=== PATIENT | male | born 1980 | race American Indian/Alaskan Native ===

== ENCOUNTER 2019-03-10 21:32 | Emergency (ER) | payer SELFPAY ==
--- NOTE | 2019-03-10 22:29 | Event Note ---
ED Screening Note Date of service: 03/10/19 Time: 22:26 ED Screening Note: 38 y o male presents with left abd pain and lump x 3 days also cc of blood in stool 2 days, 2 episodes This initial assessment/diagnostic orders/clinical plan/treatment(s) is/are subject to change based on patients health status, clinical progression and re- assessment by fellow clinical providers in the ED. Further treatment and workup at subsequent clinical providers discretion. Patient/guardian urged not to elope from the ED as their condition may be serious if not clinically assessed and managed. Initial orders include: ua,cbc,cmp CT scan
[2019-03-10 22:57] LABS: Bilirubin,Urine NEG (Negative); Blood,Urine NEG (Negative); Color,Urine Yellow (Yellow); Mucus,Urine FEW /HPF; Protein,Urine <15 mg/dL mg/dL (Negative); Urobilinogen,Urine < 2.0 mg/dL (<2.0); WBC,Urine < 1.0 /HPF (0.0-6.0)
--- NOTE | 2019-03-10 23:33 | Cat Scan Report ---
CT abdomen pelvis wo con INDICATION: Abdominal Pain. TECHNIQUE: All CT scans at this location are performed using the following dose modulation technique: Automated exposure control. CONTRAST: None. COMPARISON: None available. The parenchymal organs are unremarkable in appearance. Negative for abdominal mass, adenopathy or flu id collection. A fat-containing umbilical hernia is small. Evaluation the bowel demonstrates diverticulosis without localized thickening and adjacent inflammati on at the junction of the descending and sigmoid colon's. Negative for free perforation or abscess. IMPRESSION: 1. Moderate acute diverticulitis at junction of descending and sigmoid colon's. 2. Small fat-containing umbilical hernia. Signer Name: Brandon Mims MD Signed: 03/10/2019 11:29 PM Workstation Name: [id number]
[2019-03-10 23:48] LABS: Basophils # (Auto) 0.2 K/mm3 (0.0-0.1); Basophils % (Auto) 1.8 % (0.0-1.8); Eosinophils # (Auto) 0.1 K/mm3 (0.0-0.4); Eosinophils % (Auto) 1.1 % (0.0-4.3); Lymphocytes # (Auto) 1.9 K/mm3 (1.2-5.4); Lymphocytes % (Auto) 14.4 % (13.4-35.0); Mean Corpuscular HGB Conc 36 % (32-34); Mean Corpuscular Volume 100 fl (84-94); Monocytes % (Auto) 7.2 % (0.0-7.3); Platelet Count 201 K/mm3 (140-440); Red Blood Count 4.73 M/mm3 (3.65-5.03)
[2019-03-11 00:01] LABS: INR 1.02 (0.87-1.13)
[2019-03-11 00:07] LABS: Hematocrit 47.4 % (35.5-45.6); Hemoglobin 17.1 gm/dl (11.8-15.2)
[2019-03-11 00:13] LABS: Alanine Aminotransferase 16 units/L (7-56); Albumin 4.2 g/dL (3.9-5); BUN/Creatinine Ratio 5; Blood Urea Nitrogen 6 mg/dL (9-20); Hemolysis Index 18
[2019-03-11] MEDS ORDERED: fentaNYL 100 MCG/2 ML INJ IV ONE (00:29)
[2019-03-11] MEDS ORDERED: ONDANSETRON 4 MG/2 ML INJ IV ONE (00:29)
[2019-03-11] MEDS ORDERED: levoFLOXacin 750 MG TAB PO ONE (00:31)
[2019-03-11] MEDS ORDERED: metroNIDAZOLE 500 MG TAB PO ONE (00:31)
--- NOTE | 2019-03-11 00:37 | Emergency Department Report ---
HPI - General Chief Complaint: Abdominal Pain Time Seen by Provider: 03/10/19 23:54 - HPI HPI: Room 19 The patient is a 38-year-old male presenting with chief complaint of headache and abdominal pain. The patient states for the past 4 days he's had a constant frontal headache and left sided abdominal pain. Patient describes abdominal pain as sharp and cramping which has been constant and waxing and waning. The patient states yesterday he noticed some blood in the bowl when he had a bowel movement. Patient missed her medical pain at that time but none currently. Patient denies dysuria or hematuria. Patient denies history of fever. Patient gets his pain score 10/10 Location: [See above] Duration: [See above] Quality: [See above] Severity: [See above] Timing: [See above] Context: [See above] Modifying factors: [See above] Associated signs and symptoms: [see above] ED Past Medical Hx - Past Medical History Previous Medical History?: No - Surgical History Past Surgical History?: No - Family History Family history: no significant - Social History Smoking Status: Never Smoker Substance Use Type: None (denies illicit drug use), Alcohol (occasional) - Medications Home Medications: Home Medications Medication Instructions Recorded Confirmed Last Taken Type HYDROcodone/APAP 5-325 [[place] 1 - 2 each PO Q6HR PRN #20 tablet 03/11/19 Unknown Rx 5/325] levoFLOXacin [Levaquin] 750 mg PO QDAY #10 tablet 03/11/19 Unknown Rx metroNIDAZOLE [Flagyl] 500 mg PO Q6H #40 tablet 03/11/19 Unknown Rx ED Review of Systems ROS: Stated complaint: LEFT SIDE LUMP ON STOMACH Other details as noted in HPI Constitutional: denies: fever Eyes: denies: eye pain ENT: denies: throat pain Respiratory: no symptoms reported Cardiovascular: denies: chest pain Endocrine: no symptoms reported Gastrointestinal: abdominal pain, nausea, vomiting, hematochezia Genitourinary: denies: dysuria Musculoskeletal: denies: back pain Neurological: headache Physical Exam - Physical Exam Vital Signs: Vital Signs 03/10/19 03/10/19 03/11/19 21:51 22:25 00:00 Temperature 98.6 F 98.6 F 98.4 F Pulse Rate 72 72 61 Respiratory 18 18 21 Rate Blood Pressure 135/84 135/84 Blood Pressure 135/85 [Left] O2 Sat by Pulse 97 98 97 Oximetry Physical Exam: GENERAL: The patient is well-developed well-nourished male lying on stretcher not appearing to be in acute distress. [] HEENT: Normocephalic. Atraumatic. Extraocular motions are intact. Patient has moist mucous membranes. NECK: Supple. Trachea midline CHEST/LUNGS: Clear to auscultation. There is no respiratory distress noted. HEART/CARDIOVASCULAR: Regular. There is no tachycardia. There is no gallop rub or murmur. ABDOMEN: Abdomen is soft, with tenderness to palpation in the left lower quadrant. Patient has normal bowel sounds. There is no abdominal distention. SKIN: There is no rash. There is no edema. There is no diaphoresis. NEURO: The patient is awake, alert, and oriented. The patient is cooperative. The patient has normal speech MUSCULOSKELETAL: There is left CVA tenderness. There is no evidence of acute injury. ED Course Vital Signs 03/10/19 03/10/19 03/11/19 21:51 22:25 00:00 Temperature 98.6 F 98.6 F 98.4 F Pulse Rate 72 72 61 Respiratory 18 18 21 Rate Blood Pressure 135/84 135/84 Blood Pressure 135/85 [Left] O2 Sat by Pulse 97 98 97 Oximetry ED Medical Decision Making - Lab Data Result diagrams: 03/10/19 23:30 03/10/19 23:30 Laboratory Tests 03/10/19 03/10/19 03/10/19 23:30 23:30 23:30 WBC 13.2 H RBC 4.73 Hgb 17.1 H Hct 47.4 H MCV 100 H MCH 36 H MCHC 36 H RDW 12.0 L Plt Count 201 Lymph % (Auto) 14.4 [place] % (Auto) 7.2 Eos % (Auto) 1.1 Baso % (Auto) 1.8 Lymph # 1.9 [place] # 1.0 H Eos # 0.1 Baso # 0.2 H Seg Neutrophils % 75.5 H Seg Neutrophils # 10.0 H PT 13.3 INR 1.02 Sodium 137 Potassium 3.8 Chloride 103.4 Carbon Dioxide 22 Anion Gap 15 BUN 6 L Creatinine 1.3 Estimated GFR > 60 BUN/Creatinine Ratio 5 Glucose 97 Calcium 9.0 Total Bilirubin 0.80 AST 19 ALT 16 Alkaline Phosphatase 80 Total Protein 7.8 Albumin 4.2 Albumin/Globulin Ratio 1.2 Lipase Urine Color Urine Turbidity Urine pH Ur Specific [place] Urine Protein Urine Glucose (UA) Urine Ketones Urine Blood Urine Nitrite Urine Bilirubin Urine Urobilinogen Ur Leukocyte Esterase Urine WBC (Auto) Urine RBC (Auto) U Epithel Cells (Auto) Urine Mucus 03/10/19 03/10/19 23:30 Unknown WBC RBC Hgb Hct MCV MCH MCHC RDW Plt Count Lymph % (Auto) [place] % (Auto) Eos % (Auto) Baso % (Auto) Lymph # [place] # Eos # Baso # Seg Neutrophils % Seg Neutrophils # PT INR Sodium Potassium Chloride Carbon Dioxide Anion Gap BUN Creatinine Estimated GFR BUN/Creatinine Ratio Glucose Calcium Total Bilirubin AST ALT Alkaline Phosphatase Total Protein Albumin Albumin/Globulin Ratio Lipase 18 Urine Color Yellow Urine Turbidity Clear Urine pH 6.0 Ur Specific [place] 1.013 Urine Protein <15 mg/dl Urine Glucose (UA) Neg Urine Ketones Neg Urine Blood Neg Urine Nitrite Neg Urine Bilirubin Neg Urine Urobilinogen < 2.0 Ur Leukocyte Esterase Neg Urine WBC (Auto) < 1.0 Urine RBC (Auto) 1.0 U Epithel Cells (Auto) < 1.0 Urine Mucus Few - Radiology Data Radiology results: report reviewed (ED abdomen the pelvis, CT head), image reviewed (CT abdomen and pelvis, CT head) [place] [address] Cat Scan Report Signed Patient: LANDON RIOS MR#: [id number] : 1980 Acct:[id number] Age/Sex: 38 / M ADM Date: 03/10/19 Loc: ED Atte cy Dr: Ordering Physician: JETHRO RENE Date of Service: 03/10/19 Procedure(s): CT abdomen pelvis wo con Accession Number(s): [id number] cc: JETHRO RENE CT abdomen pelvis wo con INDICATION: Abdominal Pain. TECHNIQUE: All CT scans at this location are performed using the following dose modulation technique: Automated exposure control. CONTRAST: None. COMPARISON: None available. The parenchymal organs are unremarkable in appearance. Negative for abdominal mass, adenopathy or fluid collection. A fat-containing umbilical hernia is small. Evaluation the bowel demonstrates diverticulosis without localized thickening and adjacent inflammation at the junction of the descending and sigmoid colon's. Negative for free perforation or abscess. IMPRESSION: 1. Moderate acute diverticulitis at junction of descending and sigmoid colon's. 2. Small fat-containing umbilical hernia. Signer Name: Brandon Mims MD Signed: 03/10/2019 11:29 PM Workstation Name: [id number] Transcribed By: OTIS Dictated By: Brandon Mims MD Electronically Authenticated By: Brandon Mims MD Signed Date/Time: 03/10/192328 DD/ 24 TD/TT: [facility] [address] [place] [address] Cat Scan Report Signed Patient: LANDON RIOS MR#: [id number] : 1980 Acct:[id number] Age/Sex: 38 / M ADM Date: 03/10/19 Loc: ED Attending Dr: Ordering Physician: CAROLEE AGUILAR MD Date of Service: 03/11/19 Procedure(s): CT head/brain wo con Accession Number(s): [id number] cc: CAROLEE AGUILAR MD CT head/brain wo con INDICATION: headache. TECHNIQUE: All CT scans at this location are performed using the following dose modulation technique: Automated exposure control. CONTRAST: None. COMPARISON: None available. FINDINGS: The ventricular system is appropriate in size and configuration without midline shift. Negative for mass, stroke or hemorrhage. Imaged portions of the paranasal sinuses are clear. IMPRESSION: Negative CT brain without contrast. Signer Name: Brandon Mims MD Signed: 03/11/2019 1:36 AM Workstation Name: [id number] Transcribed By: OTIS Dictated By: Brandon Mims MD Electronically Authenticated By: Brandon Mims MD Signed Date/Time: 03/11/19135 DD/ 0 TD/TT: - Differential Diagnosis diverticulitis, renal colic, intracranial mass, ICH, hemorrhoids Critical care attestation.: If time is entered above; I have spent that time in minutes in the direct care of this critically ill patient, excluding procedure time. ED Disposition Clinical Impression: Acute diverticulitis, Headache Disposition: - TO HOME OR SELFCARE Is pt being admited?: No Does the pt Need Aspirin: No Condition: Stable Instructions: Diverticulitis (ED) Additional Instructions: Return to the emergency department should you develop worsening symptoms, inability to tolerate food or liquids, high fever or any other concerns Prescriptions: metroNIDAZOLE [Flagyl] 500 mg PO Q6H #40 tablet levoFLOXacin [Levaquin] 750 mg PO QDAY #10 tablet HYDROcodone/APAP 5-325 [[place] 5/325] 1 - 2 each PO Q6HR PRN #20 tablet PRN Reason: Pain Referrals: GRACE MEDLEY MD [Staff Physician] - 3-5 Days (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 Please follow up with him for further evaluation) Time of Disposition: 02:01
--- NOTE | 2019-03-11 01:41 | Cat Scan Report ---
CT head/brain wo con INDICATION: headache. TECHNIQUE: All CT scans at this location are performed using the following dose modulation technique: Automated exposure control. CONTRAST: None. COMPARISON: None available. FINDINGS: The ventricular system is appropriate in size and configuration without midline shift. Nega tive for mass, stroke or hemorrhage. Imaged portions of the paranasal sinuses are clear. IMPRESSION: Negative CT brain without contrast. Signer Name: Brandon Mims MD Signed: 03/11/2019 1:36 AM Workstation Name: [id number]
[2019-03-11 02:05] VITALS: BP 151/95
== END 2019-03-11 02:29 | disposition home or self-care (01) ==
LOC: ED 21:32
DX: K57.92 Diverticulitis of intestine, part unspecified, without perforation or abscess without bleeding (principal); R51 Headache; Z79.899 Other long term (current) drug therapy
CPT/HCPCS: 36415; 70450; 74176; 80053; 81001; 83690; 85025; 85610; 96374; 96375; 99284; J2405; J3010

== ENCOUNTER 2020-06-25 14:49 | Emergency (ER) | payer OTHER ==
--- NOTE | 2020-06-25 15:40 | Emergency Department Report ---
Blank Doc - Documentation Documentation: 39-year-old male that presents with generalized abdominal pain with nausea vom iting. Patient stated has bright red blood in stool as well. Patient has history of diverticulitis. 1- This initial assessment/diagnostic orders/clinical plan/ treatment(s) is/are subject to change based on pt's health status, clinical progression and re- assessment by fellow clinical providers in the ED. Further treatment and workup at subsequent clinical provers discretion. Patient/guardians urged not to elope from ED as their condition may be serious if not clinically assessed and managed. 2-labs 3-UA
[2020-06-25 16:28] LABS: Basophils # (Auto) 0.1 K/mm3 (0.0-0.1); Basophils % (Auto) 0.7 % (0.0-1.8); Eosinophils # (Auto) 0.2 K/mm3 (0.0-0.4); Eosinophils % (Auto) 1.8 % (0.0-4.3); Hematocrit 53.4 % (35.5-45.6); Hemoglobin 18.4 gm/dl (11.8-15.2); Lymphocytes % (Auto) 18.5 % (13.4-35.0); Mean Corpuscular HGB Conc 35 % (32-34); Mean Corpuscular Volume 105 fl (84-94); Monocytes # (Auto) 0.9 K/mm3 (0.0-0.8); Monocytes % (Auto) 8.3 % (0.0-7.3); Platelet Count 223 K/mm3 (140-440); Red Blood Count 5.07 M/mm3 (3.65-5.03); Red Cell Distribution Width 12.2 % (13.2-15.2)
[2020-06-25 16:44] LABS: Alanine Aminotransferase 35 units/L (7-56); Albumin 4.5 g/dL (3.9-5); BUN/Creatinine Ratio 3; Blood Urea Nitrogen 3 mg/dL (9-20); Calcium 9.5 mg/dL (8.4-10.2); Hemolysis Index 10
--- NOTE | 2020-06-26 02:08 | Emergency Department Report ---
ED Abdominal Pain HPI - General Chief Complaint: GI Bleed Stated Complaint: ABD PAIN/BLOODY STOOL PUI?: No Time Seen by Provider: 06/25/20 15:30 Source: patient Mode of arrival: Ambulatory Limitations: No Limitations - History of Present Illness Initial Comments: Chief complaint: Abdominal pain HPI: This is a 39-year-old male with history of diverticulitis presents with left lower quadrant abdominal pain for several days. Pain is crampy achy moderate 8 out of 10 in severity. No radiation. Pain is constant. Worse with palpation. Patient also has bloody stools. Also has rectal bleeding in addition to bloody stools. He denies fever. He denies vomiting. But he does have nausea. MD Complaint: abdominal pain -: Gradual, days(s) (2 days) Location: LLQ Radiation: none Migration to: no migration Severity: moderate Severity scale (0 -10): 8 Quality: cramping Consistency: constant Improves With: nothing Worsens With: movement Associated Symptoms: nausea, hematochezia, other (Rectal bleeding) - Related Data Previous Rx's Medication Instructions Recorded Last Taken Type HYDROcodone/APAP 5-325 [[place] 1 - 2 each PO Q6HR PRN #20 tablet 03/11/19 Unknown Rx 5/325] levoFLOXacin [Levaquin] 750 mg PO QDAY #10 tablet 03/11/19 Unknown Rx metroNIDAZOLE [Flagyl] 500 mg PO Q6H #40 tablet 03/11/19 Unknown Rx Ciprofloxacin HCl 500 mg PO BID 10 Days #20 tablet 06/26/20 Unknown Rx HYDROcodone/APAP 5-325 [[place] 1 each PO Q6HR PRN #15 tablet 06/26/20 Unknown Rx 5/325] Promethazine [Phenergan] 25 mg PO Q6HR PRN #10 tab 06/26/20 Unknown Rx metroNIDAZOLE [Flagyl TAB] 500 mg PO Q12HR 10 Days #20 tab 06/26/20 Unknown Rx Allergies Allergy/AdvReac Type Severity Reaction Status Date / Time No Known Allergies Allergy Unverified 03/10/19 22:02 ED Review of Systems ROS: Stated complaint: ABD PAIN/BLOODY STOOL Other details as noted in HPI Comment: All other systems reviewed and negative Constitutional: denies: fever, malaise Respiratory: denies: cough, shortness of breath Gastrointestinal: abdominal pain, nausea, hematochezia ED Past Medical Hx - Past Medical History Previous Medical History?: Yes Additional medical history: Diverticulitis - Surgical History Past Surgical History?: No - Social History Smoking Status: Never Smoker Substance Use Type: None - Medications Home Medications: Home Medications Medication Instructions Recorded Confirmed Last Taken Type HYDROcodone/APAP 5-325 [[place] 1 - 2 each PO Q6HR PRN #20 tablet 03/11/19 Unknown Rx 5/325] levoFLOXacin [Levaquin] 750 mg PO QDAY #10 tablet 03/11/19 Unknown Rx metroNIDAZOLE [Flagyl] 500 mg PO Q6H #40 tablet 03/11/19 Unknown Rx Ciprofloxacin HCl 500 mg PO BID 10 Days #20 tablet 06/26/20 Unknown Rx HYDROcodone/APAP 5-325 [[place] 1 each PO Q6HR PRN #15 tablet 06/26/20 Unknown Rx 5/325] Promethazine [Phenergan] 25 mg PO Q6HR PRN #10 tab 06/26/20 Unknown Rx metroNIDAZOLE [Flagyl TAB] 500 mg PO Q12HR 10 Days #20 tab 06/26/20 Unknown Rx ED Physical Exam - General Limitations: No Limitations General appearance: alert, in no apparent distress, other (Appears comfortable nontoxic-appearing) - Head Head exam: Present: atraumatic, normocephalic - Eye Eye exam: Present: normal appearance - ENT ENT exam: Present: mucous membranes moist - Neck Neck exam: Present: normal inspection - Respiratory Respiratory exam: Present: normal lung sounds bilaterally. Absent: respiratory distress, wheezes, rales, rhonchi - Cardiovascular Cardiovascular Exam: Present: regular rate, normal rhythm, normal heart sounds. Absent: systolic murmur, diastolic murmur, rubs, gallop - GI/Abdominal GI/Abdominal exam: Present: soft, tenderness, guarding, normal bowel sounds. Absent: distended, rebound - Rectal Rectal exam: Present: deferred - Extremities Exam Extremities exam: Present: normal inspection - Back Exam Back exam: Present: normal inspection - Neurological Exam Neurological exam: Present: alert, oriented X3 - Psychiatric Psychiatric exam: Present: normal affect, normal mood - Skin Skin exam: Present: warm, dry, intact, normal color. Absent: rash ED Course Vital Signs 06/25/20 15:19 Temperature 97.8 F Pulse Rate 84 Respiratory 16 Rate Blood Pressure 132/79 [Left] O2 Sat by Pulse 98 Oximetry ED Medical Decision Making - Lab Data Result diagrams: 06/25/20 16:04 06/25/20 16:04 Laboratory Results - last 24 hr 06/25/20 06/25/20 16:04 16:04 WBC 10.7 RBC 5.07 H Hgb 18.4 H Hct 53.4 H MCV 105 H MCH 36 H MCHC 35 H RDW 12.2 L Plt Count 223 Lymph % (Auto) 18.5 [place] % (Auto) 8.3 H Eos % (Auto) 1.8 Baso % (Auto) 0.7 Lymph # (Auto) 2.0 [place] # (Auto) 0.9 H Eos # (Auto) 0.2 Baso # (Auto) 0.1 Seg Neutrophils % 70.7 H Seg Neutrophils # 7.6 Sodium 138 Potassium 3.9 Chloride 103.2 Carbon Dioxide 24 Anion Gap 15 BUN 3 L Creatinine 0.9 Estimated GFR > 60 BUN/Creatinine Ratio 3 Glucose 83 Calcium 9.5 Total Bilirubin 0.60 AST 33 ALT 35 Alkaline Phosphatase 86 Total Protein 7.3 Albumin 4.5 Albumin/Globulin Ratio 1.6 Lipase 22 - Medical Decision Making Clinical impression: Acute diverticulitis: P.o. antibiotics initiated emergency department. Patient was prescribed ciprofloxacin & metronidazole. Patient also prescribed promethazine and [place] for supportive care Rectal bleeding: Differential diagnosis includes external/internal hemorrhoids versus anal fissure patient given verbal written education Critical care attestation.: If time is entered above; I have spent that time in minutes in the direct care of this critically ill patient, excluding procedure time. ED Disposition Clinical Impression: Acute diverticulitis, Rectal bleeding Disposition: - TO HOME OR SELFCARE Is pt being admited?: No Does the pt Need Aspirin: No Condition: Stable Instructions: Rectal Bleeding, Diverticulitis, [id number] Prescriptions: Ciprofloxacin HCl 500 mg PO BID 10 Days #20 tablet metroNIDAZOLE [Flagyl TAB] 500 mg PO Q12HR 10 Days #20 tab HYDROcodone/APAP 5-325 [[place] 5/325] 1 each PO Q6HR PRN #15 tablet PRN Reason: Pain Promethazine [Phenergan] 25 mg PO Q6HR PRN #10 tab PRN Reason: Nausea Referrals: EILEEN ALONZO MD [Staff Physician] - 3-5 Days
[2020-06-26] MEDS ORDERED: ONDANSETRON 4 MG ODT TAB PO ONE (02:09)
[2020-06-26] MEDS ORDERED: levoFLOXacin 500 MG TAB PO ONE (02:09)
[2020-06-26] MEDS ORDERED: IBUPROFEN 800 MG TAB PO ONE (02:09)
[2020-06-26] MEDS ORDERED: metroNIDAZOLE 500 MG TAB PO ONE (02:09)
[2020-06-26 02:47] VITALS: BP 130/83
== END 2020-06-26 02:48 | disposition home or self-care (01) ==
LOC: ED 14:49
DX: K57.92 Diverticulitis of intestine, part unspecified, without perforation or abscess without bleeding (principal); K62.5 Hemorrhage of anus and rectum; Z79.2 Long term (current) use of antibiotics; Z79.899 Other long term (current) drug therapy
CPT/HCPCS: 36415; 80053; 83690; 85025; Q0162